=== PATIENT | male | born 1995 | race Two or more races ===

== ENCOUNTER 2017-07-03 00:18 | Emergency (ER) | payer OTHER ==
--- NOTE | 2017-07-03 03:00 | ER Document Report ---
ED Psych Disorder / Suicide <UYEN CHAVIS - Last Filed: 07/03/17 11:33> <MARTELL TELLES - Last Filed: 07/03/17 11:58> - General TRAVEL OUTSIDE OF THE [place] 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 Patient states that earlier today he went to the ER at [facility] to have a bite on the inside of his cheek evaluated and when he returns back to work he felt that he was being picked on. He states that he came home very upset and "trashed his house". He states that he has had difficulty sleeping over the past 2 days. He admits to thoughts of suicidal and homicidal ideations but denies any focalized plan. He states that he does have firearms in his home. When asked, he did state that he felt nervous given his current mental state about being home with firearms. He denies any other past medical issues. Up-to-date on vaccines (KAROL YOUSSEF ) - Related Data Allergies/Adverse Reactions: No Known Allergies Allergy (Unverified 07/03/17 00:22) Past Medical History - Social History Smoking Status: Never Smoker Family History: Reviewed & Not Pertinent <KAROL YOUSSEF - Last Filed: 07/03/17 19:31> Review of Systems - Review of Systems Constitutional: No symptoms reported Cardiovascular: No symptoms reported. denies: Chest pain Respiratory: No symptoms reported Gastrointestinal: No symptoms reported Musculoskeletal: No symptoms reported Neurological/Psychological: See HPI -: Yes All other systems reviewed and negative <KAROL YOUSSEF - Last Filed: 07/03/17 19:31> Physical Exam <UYEN CHAVIS - Last Filed: 07/03/17 11:33> <MARTELL TELLES - Last Filed: 07/03/17 11:58> <KAROL YOUSSEF - Last Filed: 07/03/17 19:31> - Vital signs Vitals: Temp Pulse Resp BP Pulse Ox 98.3 F 89 18 145/86 H 98 07/03/17 00:22 07/03/17 00:22 07/03/17 00:22 07/03/17 00:22 07/03/17 00:22 - Notes Notes: PHYSICAL EXAM GENERAL: Alert, interacts well. HEAD: Normocephalic, atraumatic. EYES: Pupils equal, round, and reactive to light. Extraocular movements intact. ENT: Oral mucosa moist, tongue midline. NECK: Full range of motion. Supple. Trachea midline. LUNGS: Clear to auscultation bilaterally, no wheezes, rales, or rhonchi. No respiratory distress. HEART: Regular rate and rhythm. No murmurs, gallops, or rubs. ABDOMEN: Soft, nondistended, nontender. No guarding, rebound, or rigidity.. Bowel sounds present in all 4 quadrants. EXTREMITIES: Moves all 4 extremities spontaneously. No edema, radial and dorsalis pedis pulses 2/4 bilaterally. No cyanosis. NEUROLOGICAL: Alert and oriented x4. Normal speech. PSYCH: Flat affect. Patient able to maintain eye contact when speaking. No evidence of tangential speech, flight of ideas. Does not appear to be responding to any internal stimuli. SKIN: Warm, dry, normal turgor. No rashes or lesions noted. (KAROL YOUSSEF) Course - Laboratory Result Diagrams: 07/03/17 03:20 07/03/17 03:20 <UYEN CHAVIS - Last Filed: 07/03/17 11:33> - Laboratory Result Diagrams: 07/03/17 03:20 07/03/17 03:20 <MARTELL TELLES - Last Filed: 07/03/17 11:58> - Laboratory Result Diagrams: 07/03/17 03:20 07/03/17 03:20 <KAROL YOUSSEF - Last Filed: 07/03/17 19:31> - Re-evaluation Re-evalutation: Patient is a 22-year-old male who is hemodynamically stable, no acute distress and afebrile. EKG ordered as part of the order set shows evidence of nonspecific ST elevations but based on patient's clinical exam without any evidence of chest pain, shortness of breath, dyspnea. Given discussion with patient in concern for suicidal and homicidal ideations, patient has decided to voluntarily to stay in the ED to follow-up with mental health in the morning. His at the bedside is agreeable with this plan. (KAROL YOUSSEF) - Vital Signs Vital signs: Temp Pulse Resp BP Pulse Ox 98.4 F 80 15 124/74 98 07/03/17 11:52 07/03/17 11:52 07/03/17 11:52 07/03/17 11:52 07/03/17 11:52 - Laboratory Laboratory results interpreted by me: 07/03/17 03:20 Sodium 145.2 H Glucose 113 H Creatine Kinase 207 H Salicylates < 1.0 L Acetaminophen < 10 L Discharge <UYEN CHAVIS - Last Filed: 07/03/17 11:33> <MARTELL TELLES - Last Filed: 07/03/17 11:58> <KAROL YOUSSEF - Last Filed: 07/03/17 19:31> - Discharge Clinical Impression: Homicidal ideation, Suicidal ideation, Problem related to social environment, unspecified Condition: Stable Disposition: [facility] Instructions: Anxiety ([facility]) Additional Instructions: DEPRESSION: Your evaluation reveals that 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 While symptoms may be vague, they often include disturbance of sleep, fatigue, loss of appetite , and general loss of interest in life. While depression may be a side effect of drugs, or a reaction to a major change in your life, many cases have no known cause. If depression is acute, and related to a major loss in your life, you can expect it to clear completely with time. If you have been depressed a long time , are prone to repeated bouts of depression or low mood, or have been thinking of suicide, get help. Depression can be treated with anti-depressant medication and counselling. Long-term depression will often take a few weeks to clear, even with appropriate medication. Follow-up care is important. SUICIDAL IDEATION: Suicidal ideation is a common medical term for thoughts about suicide, which may be as detailed as a formulated plan, without the suicidal act itself. Although most people who undergo suicidal ideation do not commit suicide, some go on to make suicide attempts. The range of suicidal ideation varies greatly from fleeting to detailed planning, role playing, and unsuccessful attempts. While thoughts about suicide are common, most people do not carry out serious actions to commit suicide. Based upon your evaluation and discussion with you, we do not believe you are currently at risk to act upon your thoughts of suicide. You have agreed to return to the Emergency Department, at any time , if you feel inclined to act upon your suicidal thoughts. FOLLOW-UP CARE: You presented to the Emergency Department endorsing homicidal and suicidal ideation. 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 In addition, mental health coordinated with your command to notify them that you have access to a gun, due to the gun being the means regarding the homicidal/suicidal ideation you reported; this recommendation is so that access could be removed until you have received further assessment.
[2017-07-03] MEDS ORDERED: HYDROXYZINE PAMOATE 25 MG CAPSULE PO ONE (03:15)
[2017-07-03 03:40] LABS: ABSOLUTE EOSINOPHILS # (AUTO) 0.1 10^3/uL (0.0-0.6); ABSOLUTE MONOCYTES (AUTO) 0.7 10^3/uL (0.1-1.4); BASOPHILS % (AUTO) 0.2 % (0-2); EOSINOPHILS % (AUTO) 0.9 % (0-6); HEMATOCRIT 39.5 % (37.9-51.0); MEAN CORPUSCULAR HGB CONC 35.4 g/dL (32.0-36.0); MEAN CORPUSCULAR VOLUME 88 fl (80-97); MONOCYTES % (AUTO) 10.5 % (3-13); PLATELET COUNT 298 10^3/uL (150-450); RED BLOOD COUNT 4.51 10^6/uL (4.35-5.55); RED CELL DISTRIBUTION WIDTH 12.5 % (11.5-14.0); SEGMENTED NEUTROPHILS % (AUTO) 44.4 % (42-78); TOTAL CELLS COUNTED % (AUTO) 100 %; WHITE BLOOD COUNT 6.7 10^3/uL (4.0-10.5)
[2017-07-03 03:57] LABS: ALANINE AMINOTRANSFERASE 46 U/L (21-72); ALBUMIN 4.5 g/dL (3.5-5.0); ALKALINE PHOSPHATASE 79 U/L (38-126); ANION GAP 16 (5-19); ASPARTATE AMINO TRANSFERASE 33 U/L (17-59); BILIRUBIN,DIRECT 0.3 mg/dL (0.0-0.4); BILIRUBIN,TOTAL 0.5 mg/dL (0.2-1.3); BLOOD UREA NITROGEN 18 mg/dL (7-20); CALCIUM 9.6 mg/dL (8.4-10.2); CARBON DIOXIDE 27 mmol/L (22-30); CHLORIDE 102 mmol/L (98-107); CREATINE KINASE 207 U/L (55-170); GLUCOSE 113 mg/dL (75-110); POTASSIUM 3.8 mmol/L (3.6-5.0); SODIUM 145.2 mmol/L (137-145); TOTAL PROTEIN 7.7 g/dL (6.3-8.2)
[2017-07-03 04:17] LABS: ACETAMINOPHEN < 10 ug/mL (10-30); ALCOHOL < 10 mg/dL (NONE DETECTED); SALICYLATE < 1.0 mg/dL (2.0-20.0)
--- NOTE | 2017-07-03 07:46 | EKG REPORT ---
SEVERITY:- NORMAL ECG - SINUS RHYTHM ST ELEV, PROBABLE NORMAL EARLY REPOL PATTERN : Confirmed by: Abiel Cooper MD 03-Jul-2017 07:45:59
[2017-07-03 09:37] LABS: APPEARANCE,URINE CLEAR; BILIRUBIN,URINE NEGATIVE (NEGATIVE); COLOR,URINE STRAW; GLUCOSE, URINE NEGATIVE (NEGATIVE); KETONES,URINE NEGATIVE (NEGATIVE); LEUKOCYTE ESTERASE,URINE NEGATIVE (NEGATIVE); NITRITE,URINE NEGATIVE (NEGATIVE); PROTEIN,URINE NEGATIVE (NEGATIVE); URINE SPECIFIC GRAVITY 1.004; UROBILINOGEN,URINE NEGATIVE mg/dL (<2.0)
[2017-07-03 09:54] LABS: URINE AMPHETAMINES SCREEN NEGATIVE; URINE BARBITURATES SCREEN NEGATIVE; URINE BENZODIAZEPINES SCREEN NEGATIVE; URINE COCAINE SCREEN NEGATIVE; URINE MARIJUANA (THC) SCREEN NEGATIVE; URINE METHADONE SCREEN NEGATIVE; URINE PHENCYCLIDINE SCREEN NEGATIVE
--- NOTE | 2017-07-03 10:40 | ER Document Report ---
Doctor's Note Notes: 07/03/17 10:38 Rounds: Chart reviewed and patient interviewed. Patient says is being evaluated for a "mental breakdown". Reportedly having suicidal and homicidal thoughts. Has a gun in his residence. Is a member of the . Has never had mental health issues previously. Vital signs are all normal. Lab studies showed patient's creatinine level of 207, upper normal is 170. Patient appears to be medically stable for transfer or discharge. Mental health is trying to arrange transfer for this member of the active duty to be transferred to the [facility] [place]. Nimesh Goins MD
[2017-07-03 11:54] VITALS: BP 124/74
--- NOTE | 2017-07-03 14:47 | PSYCHOLOGICAL NOTE ---
Psych Note - Psych Note Psych Note: Reason for consult: Suicidal and homicidal ideation Contact Permissions: Patient's Staff Sandie Walker [phone] ; Patient's Sheron Mohan Patient reports he has been experiencing hazing with his unit [employer]. Patient reports yesterday they were picking on him and he became angry and had gone to the emergency room unable to check on a spider bite. Patient reports he was bit by a spider 3 weeks ago. Patient reports that yesterday he had a fever. Patient reports he was not feeling good he was sweaty, unable to sleep for days. Patient reports after the way that he was treated at work yesterday and being yelled that he went home and punched holes in the wall. Patient reports he also "trashed his home". Patient reports that he was feeling very angry and could not control himself. Patient reports he want to take his gun and kill the people in his shop (referring to his job) and then shoot himself. Patient reports he imagined himself doing that and told his . Patient reports that him and his decided he should come to [facility]. Patient reports that he wants to discharge from the . Patient reports he had 2 prior duty stations one in [facility] and another and [place] in [place] stating that he has never been and he used like this before. patient reports he has never had outpatient therapy, psychiatric hospital inpatient stays, or received any mental health diagnosis before. Patient reports he is not sure why he is feeling this way and thinks it is because of what is going on at work. Patient reports people have been calling his phone from work and he is not answering. Patient reports he does not want to go back to shop but states that he has no choice. Patient reports that he has 2 more years left in the . Collateral information: Patient's Sheron Mohan ( Present in room) Patient's reports that everything patient said is true. Patient's reports that she listened in on a conversation that he had with a coworker and heard how "rude" they are. Patient's reports that they do have a gun in the home and that she will remove it. Patient's reports that he did tell her her he had those thoughts and they did not want to go to [facility] because they had made fun of him for going for the spider bite ( 3 weeks ago) and then for the fever and the inside of his cheek yesterday. Patient's reports she feels like he is being Hazed because he had a note for light duty and states that they made him work hard and stay until nighttime because he had that note. Patient's reports they tell him at work "stop being weak". Diagnosis: V 62.4 (V 60.5) target of (perceived) adverse discrimination or persecution Impression/plan: Mental health coordinated with patient's staff sergeant Walker whom patient gave consent to speak with to assist in transferring patient to [facility] on [address]. Attending physician coordinated with [facility] to transfer patient and filled out the necessary paperwork. Attending nurse completed paperwork and called for report to assist in transferring patient to [facility] (which is their mental health unit). Clinician observed patient is endorsing homicidal and suicidal ideation with intent and plan. Clinician observed patient is an active duty member, and due to his status was transferred to [facility] to receive the appropriate resources that meets his needs and for additional assessment specializing in the treatment of active duty members. Clinician recommended patient's Sheron to safety plan in the home to remove the gun from access to patient due to patient stating the gun was a part of his plan. Attending physician in agreement with plan. Consulted with Dr. Wylie regarding the management and care of patient.
== END 2017-07-03 12:00 ==
LOC: ER 00:18
DX: R45.851 Suicidal ideations (principal); F41.9 Anxiety disorder, unspecified; R42 Dizziness and giddiness; R45.850 Homicidal ideations; Z60.9 Problem related to social environment, unspecified; Z60.5 Target of (perceived) adverse discrimination and persecution
CPT/HCPCS: 36415; 80053; 80307; 81001; 82550; 84484; 85025; 93005; 93010; 99285